=== PATIENT | male | born 1990 | race Caucasian/White ===

== ENCOUNTER 2021-10-06 01:42 | Emergency (ER) | payer MEDICAID, SELFPAY ==
--- NOTE | ~2021-10-06 | XR_ITS ---
EXAMINATION: XR chest 1V portable 10/06/2021 02:47 INDICATION: Overdose PROCEDURE: AP portable chest COMPARISON: No prior studies for comparison. FINDINGS: The lungs are clear. The cardiomediastinal silhouette is within normal limits. There are no pleural effusions. There is no pneumothorax suspected. IMPRESSION: 1: NO ACUTE CARDIOPULMONARY DISEASE. Reviewed, dictated and finalized at location A. CHOOL TEACHER'S ASSISTANT
[2021-10-06 01:43] VITALS: BP 144/61; PULSE 136; RESP 25; TEMP 36.4; O2SAT 99
[2021-10-06 01:49] VITALS: BP 144/61; PULSE 136; PULSE 140; RESP 20; O2SAT 100
--- NOTE | 2021-10-06 02:33 | ECG_ITS ---
Measurements Intervals [place] Rate: 126 P: 47 [place]: 162 QRS: 37 QRSD: 88 T: 6 QT: 285 QTc: 413 Interpretive Statements SINUS TACHYCARDIA MINIMAL Q WAVES- INFERIOR LEADS BASELINE ARTIFACT- II, III, AVF, V2-V6 ABNORMAL ECG Electronically Signed On 10-06-2021 6:14:17 BATTERY HAND by Uvaldo Jarrell D.O.
[2021-10-06 03:10] VITALS: BP 117/75; PULSE 132; RESP 26; O2SAT 100
[2021-10-06] MEDS: SODIUM CHLORIDE 0.9% IV 1,000 ML 999 ML IV CONT (03:12)
[2021-10-06 03:20] LABS: Basophils Percent Auto 0.2 % (0.2-1.2); Hemoglobin 15.4 g/dL (14.0-18.0); Immature Granulocyte Absolute 0.04 K/mm3 (0.00-0.031); Immature Granulocyte Percent A 0.4 % (0-0.5); Lymphocytes Absolute Auto 1.12 K/mm3 (0.9-3.2); Mean Corpuscular HGB Conc 32.1 g/dl (32-36); Mean Corpuscular Hemoglobin 26.6 pg (26-34); Mean Corpuscular Volume 82.8 fl (80-100); Mean Platelet Volume 10.5 fl (7.4-10.4); Monocytes Absolute Auto 0.8 K/mm3 (0.1-0.6); Monocytes Percent Auto 7.8 % (2.6-8.5); Neutrophils Absolute Auto 8.2 K/mm3 (1.3-6.7); Neutrophils Percent Auto 80.6 % (45.5-73.1); Platelet Count Result 158 k/mm3 (150-375); Red Cell Distribution Width 14.6 % (11.5-14.5); White Blood Count 10.2 K/mm3 (4.5-10.0)
[2021-10-06] MEDS: LORazepam INJ (*CRX) 2 MG/ML VIAL 1 MG IV PUSH (03:20)
--- NOTE | 2021-10-06 03:24 | ED.GENADULT ---
HPI - General Adult General Chief complaint: Unspecified Stated complaint: dispens. marijuana, hydrocodone, anxiety attacks Time Seen by Provider: 10/06/21 02:21 History of Present Illness HPI narrative: Patient is a 31-year-old gentleman who presents the emergency department with chief complaint of anxiety. The patient reports that he got some marijuana from the dispensary today took about six hits and then started feeling very anxious. Patient states that he noticed that also took some hydrocodone that was his mother's and felt as though he was having a panic attack. Patient felt very anxious patient denies suicidal or homicidal ideation. Related Data Allergies Allergy/AdvReac Type Severity Reaction Status Date / Time No Known Allergies Allergy Verified 10/06/21 03:11 Review of Systems Review of Systems: A 10 system review of systems was completed on the patient and is negative except for what is stated in the HPI. Nursing and ancillary documentation was reviewed. Exam Narrative: GENERAL: Well-appearing, well-nourished, and in no acute distress. HEAD: Normocephalic, atraumatic. EYES: PERRLA and EOMI. ENT: Nares clear, no rhinorrhea or epistaxis. Mucous membranes moist. NECK: Supple. CHEST: Clear to auscultation. No respiratory distress. HEART: Regular rate and rhythm. No murmur heard. Normal peripheral pulses. ABDOMEN: Soft, nontender, nondistended, normal active bowel sounds. EXTREMITIES: Normal range of motion. No edema. SKIN: Warm, dry, no rash. NEURO: No focal deficits. Alert and oriented x3. PSYCH: Normal mood and affect. Course Course Emergency Course: EKG is sinus tachycardia rate of [address] elevation or ST depression Chest x-ray shows no evidence of focal infiltrate Vital Signs Vital signs: Vital Signs Temperature 36.4 C 10/06/21 01:43 Pulse Rate 136 H 10/06/21 01:43 Respiratory Rate 25 H 10/06/21 01:43 Blood Pressure 144/61 H 10/06/21 01:43 Pulse Oximetry 99 10/06/21 01:43 Temperature 36.4 C 10/06/21 01:43 Pulse Rate 118 H 10/06/21 04:30 Respiratory Rate 27 H 10/06/21 04:30 Blood Pressure 133/80 10/06/21 04:30 Pulse Oximetry 99 10/06/21 04:30 Medical Decision Making Vital Signs Vital Signs: Vital Signs Temperature 36.4 C 10/06/21 01:43 Pulse Rate 136 H 10/06/21 01:43 Respiratory Rate 25 H 10/06/21 01:43 Blood Pressure 144/61 H 10/06/21 01:43 Pulse Oximetry 99 10/06/21 01:43 Temperature 36.4 C 10/06/21 01:43 Pulse Rate 118 H 10/06/21 04:30 Respiratory Rate 27 H 10/06/21 04:30 Blood Pressure 133/80 10/06/21 04:30 Pulse Oximetry 99 10/06/21 04:30 Lab Data Result diagrams: 10/06/21 03:13 10/06/21 03:13 Labs: Lab Results 10/06/21 10/06/21 10/06/21 Range/Units 03:13 03:13 03:13 WBC 10.2 H (4.5-10.0) K/mm3 RBC 5.80 (4.6-6.20) M/mm3 Hgb 15.4 (14.0-18.0) g/dL Hct 48.0 (42.0-52.0) % MCV 82.8 (80-100) fl MCH 26.6 (26-34) pg MCHC 32.1 (32-36) g/dl RDW 14.6 H (11.5-14.5) % Plt Count 158 (150-375) k/mm3 MPV 10.5 H (7.4-10.4) fl Immature Gran % (Auto) 0.4 (0-0.5) % Neut % (Auto) 80.6 H (45.5-73.1) % Lymph % (Auto) 11.0 L (18.3-44.2) % [place] % (Auto) 7.8 (2.6-8.5) % Eos % (Auto) 0.0 (0-4.4) % Baso % (Auto) 0.2 (0.2-1.2) % Lymph # (Auto) 1.12 (0.9-3.2) K/mm3 [place] # (Auto) 0.8 H (0.1-0.6) K/mm3 Eos # (Auto) 0.0 (0-0.3) K/mm3 Baso # (Auto) 0.0 (0.0-0.1) K/mm3 Abs Immat Gran (auto) 0.04 H (0.00-0.031) K/mm3 Absolute Neuts (auto) 8.2 H (1.3-6.7) K/mm3 Absolute Nucleated RBC 0.0 (0.0-0.012) K/mm3 Nucleated RBC % 0.0 (0.0-0.2) % Sodium 139 (137-145) mmol/L Potassium 3.9 (3.4-5.0) mmol/L Chloride 104 (98-107) mmol/L Carbon Dioxide 26 (22-30) mmol/L Anion Gap 9 (8-16) mmol/L BUN 11 (9-20) mg/dL Creatinine 1.00 (0.7-1.3) mg/dL Estim Creat Clear Shmuel
[2021-10-06 03:30] LABS: Acetaminophen < 10 ug/mL (10-30); Ethanol < 10 mg/dL (<10); Salicylate < 1.0 mg/dL (2-20)
[2021-10-06 03:31] LABS: Alanine Aminotransferase 40 U/L (4-50); Albumin Level 4.1 g/dL (3.5-5.1); Alkaline Phosphatase 64 U/L (38-126); Anion Gap 9 mmol/L (8-16); Aspartate Amino Transferase 27 U/L (17-59); Bilirubin,Total 0.6 mg/dL (0.2-1.3); Blood Urea Nitrogen 11 mg/dL (9-20); Calcium 8.6 mg/dL (8.4-10.2); Carbon Dioxide 26 mmol/L (22-30); Chloride 104 mmol/L (98-107); Creatine Kinase 55 U/L (55-170); Estimated CRCL calculation 133 ml/min; Estimated Glomerular Filt Rate > 60; Glucose 113 mg/dL (65-110); Potassium 3.9 mmol/L (3.4-5.0); Sodium 139 mmol/L (137-145)
[2021-10-06 03:32] LABS: Lactic Acid Reflex 1.6 mmol/L (0.7-2.1)
[2021-10-06 03:42] LABS: Add Urine Microscopic? NO; Appearance Urine Clear (Clear); Bilirubin Urine Negative (Negative); Blood Urine Negative (Negative); Color Urine Yellow (Yellow); Glucose Urine UA Negative (Negative); Ketones Urine Negative (Negative); Leukocyte Esterase Ur Negative LEU/UL (Negative); Nitrate Urine Negative (Negative); Protein Urine Negative (Negative); Specific Grav Ur 1.008 (1.001-1.035); Urobilinogen Urine Negative mg/dL (<2.0)
[2021-10-06 03:43] LABS: Troponin I 0.016 ng/mL (0.000-0.034)
[2021-10-06 04:30] VITALS: BP 133/80; PULSE 118; RESP 27; O2SAT 99
[2021-10-06 05:21] VITALS: BP 121/54; PULSE 130; RESP 26; O2SAT 98
[2021-10-06 05:30] LABS: Amphetamine Screen Urine Negative (Negative); Barbiturate Screen Urine Negative (Negative); Benzodiazepines Screen Urine Negative (Negative); Cannabinoid Screen Urine Positive (Negative); Cocaine Screen Urine Negative (Negative); Methadone Screen Urine Negative (Negative); Opiate Screen Urine Positive (Negative); Phencyclidine Screen Urine Negative (Negative)
== END 2021-10-06 05:22 | disposition home or self-care (01) ==
PROVIDERS: Emergency Provider Emergency Medicine
DX: T40.711A Poisoning by cannabis, accidental (unintentional), initial encounter (principal); T40.2X1A Poisoning by other opioids, accidental (unintentional), initial encounter; F41.9 Anxiety disorder, unspecified; R00.0 Tachycardia, unspecified; R94.31 Abnormal electrocardiogram [ECG] [EKG]
CPT/HCPCS: 36415; 71045; 80053; 80307; 81003; 82550; 83605; 83735; 84484; 85025; 93005; 96361; 96374; 99284; J2060; J7030

== ENCOUNTER 2021-10-26 23:00 | Emergency (ER) | payer MEDICAID, SELFPAY ==
--- NOTE | ~2021-10-26 | CT_ITS ---
EXAMINATION: CTA chest PE protocol DATE: 10/27/2021 05:48 INDICATION: Shortness of breath. Dysphagia. TECHNIQUE: Computed tomography angiography (CTA) of the chest was performed with 100 mL Omnipaque-350 intravenous contrast timed to evaluate the pulmonary arteries. Coronal maximum intensity projection 3D-reconstructions were created by the technologist. Automated exposure control and iterative reconst ruction technique were employed. The dose-length product was 1051.83 mGy-cm. COMPARISON: Chest 2 views 10/27/21 FINDINGS: There is no pneumonia or pleural effusion. The heart size is normal. No pericardial effusio n. There is diffuse hepatic steatosis. Mild splenomegaly is noted. There is no pulmonary embolus. The re is mild thoracic spondylosis. There is mild chronic height loss of multiple vertebral bodies. IMPRESSION: 1. No pulmonary embolus. 2. Diffuse hepatic steatosis. 3. Mild splenomegaly. Reviewed, dictated and finalized at location A. CAN FOOD COOK
--- NOTE | ~2021-10-26 | XR_ITS ---
EXAMINATION: XR chest 2V DATE: 10/27/2021 03:35 INDICATION: Left chest pain. Aspiration. TECHNIQUE: Frontal and lateral views of the chest were obtained. COMPARISON: Chest single view 10/06/2021, chest CT 10/27/2021 FINDINGS: The chest demonstrates clear lungs without pneumonia, pleural effusion, or pneumothorax. Th e heart size is normal. IMPRESSION: 1. No acute cardiopulmonary disease. Reviewed, dictated and finalized at location A. ING TECHNOLOGIST
[2021-10-26 23:04] VITALS: BP 150/108; PULSE 126; RESP 18; TEMP 36.7; O2SAT 98
[2021-10-27] VITALS (8 sets, daily range): BP systolic 133–162; BP diastolic 67–100; PULSE 100–147; RESP 18–24; TEMP 36.6; O2SAT 97–100
--- NOTE | 2021-10-27 04:06 | ED.GENADULT ---
HPI - General Adult General Chief complaint: Unspecified Stated complaint: food bolus Time Seen by Provider: 10/27/21 03:23 History of Present Illness HPI narrative: Patient 31-year-old gentleman who presents emergency department with chief complaint of feels as though something is stuck in his throat. The patient states he was eating a burger tonight coughed and feels as though there is irritation in his throat afterwards. The patient states he has no shortness of breath states that she is able to swallow liquids the patient reports that he figured he should come to the emergency department to be checked out. Patient denies hypoxia denies syncope. Patient denies vomiting Related Data Home Medications Medication Instructions Recorded Confirmed sulfasalazine 10/27/21 Allergies Allergy/AdvReac Type Severity Reaction Status Date / Time No Known Allergies Allergy Verified 10/06/21 03:11 Review of Systems Review of Systems: A 10 system review of systems was completed on the patient and is negative except for what is stated in the HPI. Nursing and ancillary documentation was reviewed. Exam Narrative: GENERAL: Well-appearing, well-nourished, and in no acute distress. HEAD: Normocephalic, atraumatic. EYES: PERRLA and EOMI. ENT: Nares clear, no rhinorrhea or epistaxis. Mucous membranes moist. NECK: Supple. CHEST: Clear to auscultation. No respiratory distress. HEART: Regular rate and rhythm. No murmur heard. Normal peripheral pulses. ABDOMEN: Soft, nontender, nondistended, normal active bowel sounds. EXTREMITIES: Normal range of motion. No edema. SKIN: Warm, dry, no rash. NEURO: No focal deficits. Alert and oriented x3. PSYCH: Normal mood and affect. Course Course Emergency Course: Chest x-ray shows no evidence of focal infiltrate. Vital Signs Vital signs: Vital Signs Temperature 36.7 C 10/26/21 23:04 Pulse Rate 126 H 10/26/21 23:04 Respiratory Rate 18 10/26/21 23:04 Blood Pressure 150/108 H 10/26/21 23:04 Pulse Oximetry 98 10/26/21 23:04 Temperature 36.6 C 10/27/21 02:35 Pulse Rate 125 H 10/27/21 04:17 Respiratory Rate 18 10/27/21 02:35 Blood Pressure 143/88 H 10/27/21 04:13 Pulse Oximetry 99 10/27/21 04:13 Medical Decision Making Vital Signs Vital Signs: Vital Signs Temperature 36.7 C 10/26/21 23:04 Pulse Rate 126 H 10/26/21 23:04 Respiratory Rate 18 10/26/21 23:04 Blood Pressure 150/108 H 10/26/21 23:04 Pulse Oximetry 98 10/26/21 23:04 Temperature 36.6 C 10/27/21 02:35 Pulse Rate 125 H 10/27/21 04:17 Respiratory Rate 18 10/27/21 02:35 Blood Pressure 143/88 H 10/27/21 04:13 Pulse Oximetry 99 10/27/21 04:13 Lab Data Result diagrams: 10/27/21 04:43 10/27/21 04:43 Labs: Lab Results 10/27/21 10/27/21 10/27/21 Range/Units 04:43 04:43 04:43 WBC 13.3 H (4.5-10.0) K/mm3 RBC 6.21 H (4.6-6.20) M/mm3 Hgb 16.7 (14.0-18.0) g/dL Hct 50.4 (42.0-52.0) % MCV 81.2 (80-100) fl MCH 26.9 (26-34) pg MCHC 33.1 (32-36) g/dl RDW 14.3 (11.5-14.5) % Plt Count 219 (150-375) k/mm3 MPV 10.5 H (7.4-10.4) fl Immature Gran % (Auto) 0.4 (0-0.5) % Neut % (Auto) 77.8 H (45.5-73.1) % Lymph % (Auto) 15.9 L (18.3-44.2) % [place] % (Auto) 5.7 (2.6-8.5) % Eos % (Auto) 0.0 (0-4.4) % Baso % (Auto) 0.2 (0.2-1.2) % Lymph # (Auto) 2.11 (0.9-3.2) K/mm3 [place] # (Auto) 0.8 H (0.1-0.6) K/mm3 Eos # (Auto) 0.0 (0-0.3) K/mm3 Baso # (Auto) 0.0 (0.0-0.1) K/mm3 Abs Immat Gran (auto) 0.05 H (0.00-0.031) K/mm3 Absolute Neuts (auto) 10.4 H (1.3-6.7) K/mm3 Absolute Nucleated RBC 0.0 (0.0-0.012) K/mm3 Nucleated RBC % 0.0 (0.0-0.2) % Sodium 138 (137-145) mmol/L Potassium 4.1 (3.4-5.0) mmol/L Chloride 106 (98-107) mmol/L Carbon Dioxide 25 (22-30) mmol/L Anion Gap 7 L (8-16) mmol/L BUN 9 (9-20) mg/
[2021-10-27] MEDS: SODIUM CHLORIDE 0.9% IV 1,000 ML 999 ML IV CONT (04:44)
[2021-10-27 04:50] LABS: Basophils Percent Auto 0.2 % (0.2-1.2); Hematocrit 50.4 % (42.0-52.0); Hemoglobin 16.7 g/dL (14.0-18.0); Immature Granulocyte Absolute 0.05 K/mm3 (0.00-0.031); Immature Granulocyte Percent A 0.4 % (0-0.5); Lymphocytes Absolute Auto 2.11 K/mm3 (0.9-3.2); Lymphocytes Percent Auto 15.9 % (18.3-44.2); Mean Corpuscular HGB Conc 33.1 g/dl (32-36); Mean Corpuscular Hemoglobin 26.9 pg (26-34); Mean Corpuscular Volume 81.2 fl (80-100); Mean Platelet Volume 10.5 fl (7.4-10.4); Monocytes Absolute Auto 0.8 K/mm3 (0.1-0.6); Monocytes Percent Auto 5.7 % (2.6-8.5); Neutrophils Absolute Auto 10.4 K/mm3 (1.3-6.7); Neutrophils Percent Auto 77.8 % (45.5-73.1); Platelet Count Result 219 k/mm3 (150-375); Red Blood Count 6.21 M/mm3 (4.6-6.20); Red Cell Distribution Width 14.3 % (11.5-14.5); White Blood Count 13.3 K/mm3 (4.5-10.0)
[2021-10-27 05:05] LABS: Lactic Acid Reflex 2.6 mmol/L (0.7-2.1)
[2021-10-27 05:14] LABS: Troponin I < 0.012 ng/mL (0.000-0.034)
[2021-10-27 05:15] LABS: Add Urine Microscopic? YES; Appearance Urine Clear (Clear); Bilirubin Urine Negative (Negative); Blood Urine Negative (Negative); Color Urine Yellow (Yellow); Glucose Urine UA Negative (Negative); Ketones Urine Negative (Negative); Leukocyte Esterase Ur Negative LEU/UL (Negative); Nitrate Urine Negative (Negative); Protein Urine Negative (Negative); RBC Urine 0-2 /hpf (0-2); Specific Grav Ur 1.017 (1.001-1.035); Urobilinogen Urine Negative mg/dL (<2.0); WBC Urine 0-3 /hpf
[2021-10-27 05:16] LABS: Alanine Aminotransferase 35 U/L (4-50); Albumin Level 4.9 g/dL (3.5-5.1); Alkaline Phosphatase 69 U/L (38-126); Anion Gap 7 mmol/L (8-16); Aspartate Amino Transferase 34 U/L (17-59); Blood Urea Nitrogen 9 mg/dL (9-20); Calcium 9.3 mg/dL (8.4-10.2); Carbon Dioxide 25 mmol/L (22-30); Chloride 106 mmol/L (98-107); Estimated CRCL calculation 163 ml/min; Estimated Glomerular Filt Rate > 60; Glucose 124 mg/dL (65-110); Magnesium 2.2 mg/dL (1.6-2.3); Potassium 4.1 mmol/L (3.4-5.0); Sodium 138 mmol/L (137-145)
[2021-10-27 07:46] LABS: Reflex Lactic Acid Yes or No Add Lactic
== END 2021-10-27 06:31 | disposition home or self-care (01) ==
PROVIDERS: Emergency Provider Emergency Medicine
DX: S27.818A Other injury of esophagus (thoracic part), initial encounter (principal); X58.XXXA Exposure to other specified factors, initial encounter
CPT/HCPCS: 36415; 71046; 71275; 80053; 81001; 83605; 83735; 84484; 85025; 96360; 99284; J7030; Q9967

== ENCOUNTER 2021-11-08 07:01 | Emergency (ER) | payer MEDICAID, SELFPAY ==
[2021-11-08] VITALS (12 sets, daily range): BP systolic 143–148; BP diastolic 99–110; PULSE 94–121; RESP 10–25; TEMP 36.4; O2SAT 93–100
--- NOTE | ~2021-11-08 | XR_ITS ---
EXAMINATION: XR chest 2V DATE: 11/08/2021 08:42 INDICATION: Racing heart TECHNIQUE: PA and lateral views of the chest were obtained. COMPARISON: Chest radiograph dated 10/27/2021 FINDINGS: The lungs remain clear with no focal airspace opacities, pulmonary edema, pleural effusion or pneumot horax. The cardiomediastinal silhouette is normal. Mild thoracic kyphosis with mild spondylosis. IMPRESSION: 1. No acute cardiopulmonary disease. Reviewed, dictated and finalized at location A. ORT MAINTENANCE LABORER
--- NOTE | 2021-11-08 08:32 | ECG_ITS ---
Measurements Intervals [place] Rate: 109 P: 35 [place]: 166 QRS: 29 QRSD: 87 T: 21 QT: 317 QTc: 429 Interpretive Statements SINUS TACHYCARDIA DELAYED PRECORDIAL R/S TRANSITION MINIMAL Q WAVES- INFERIOR LEADS BASELINE WANDER- V2 ABNORMAL ECG Electronically Signed On 11-08-2021 8:52:09 GLOBAL CHIEF EXPERIENCE OFFICER by Uvaldo Jarrell D.O.
[2021-11-08 09:04] LABS: Basophils Percent Auto 0.1 % (0.2-1.2); Hematocrit 46.9 % (42.0-52.0); Hemoglobin 15.1 g/dL (14.0-18.0); Immature Granulocyte Absolute 0.04 K/mm3 (0.00-0.031); Immature Granulocyte Percent A 0.4 % (0-0.5); Lymphocytes Absolute Auto 1.41 K/mm3 (0.9-3.2); Lymphocytes Percent Auto 14.9 % (18.3-44.2); Mean Corpuscular HGB Conc 32.2 g/dl (32-36); Mean Corpuscular Hemoglobin 26.5 pg (26-34); Mean Corpuscular Volume 82.4 fl (80-100); Mean Platelet Volume 10.5 fl (7.4-10.4); Monocytes Absolute Auto 0.6 K/mm3 (0.1-0.6); Monocytes Percent Auto 6.8 % (2.6-8.5); Neutrophils Absolute Auto 7.3 K/mm3 (1.3-6.7); Neutrophils Percent Auto 77.8 % (45.5-73.1); Platelet Count Result 176 k/mm3 (150-375); Red Blood Count 5.69 M/mm3 (4.6-6.20); Red Cell Distribution Width 14.1 % (11.5-14.5); White Blood Count 9.4 K/mm3 (4.5-10.0)
[2021-11-08 09:13] LABS: Prothrombin Time 13.2 Seconds (11.1-14.7)
[2021-11-08 09:14] LABS: Partial Thromboplastin Time 32.3 SECONDS (22.3-36.8)
[2021-11-08 09:16] LABS: Alanine Aminotransferase 26 U/L (4-50); Albumin Level 4.3 g/dL (3.5-5.1); Alkaline Phosphatase 76 U/L (38-126); Anion Gap 13 mmol/L (8-16); Aspartate Amino Transferase 23 U/L (17-59); Bilirubin,Total 0.7 mg/dL (0.2-1.3); Blood Urea Nitrogen 6 mg/dL (9-20); Calcium 8.7 mg/dL (8.4-10.2); Carbon Dioxide 23 mmol/L (22-30); Chloride 102 mmol/L (98-107); Estimated CRCL calculation 147 ml/min; Estimated Glomerular Filt Rate > 60; Glucose 117 mg/dL (65-110); Lipase 72 U/L (23-300); Potassium 3.5 mmol/L (3.4-5.0); Sodium 138 mmol/L (137-145)
[2021-11-08 09:27] LABS: Troponin I < 0.012 ng/mL (0.000-0.034)
--- NOTE | 2021-11-08 09:35 | ED.ARRPALP ---
HPI - Arrhythmia/Palpitations General Chief Complaint: Arrhythmia/Palpitations Stated Complaint: heart racing Time Seen by Provider: 11/08/21 09:04 Source: patient Mode of arrival: ambulatory Limitations: no limitations History of Present Illness HPI narrative: Patient 31 years old white male presented to the ED with palpitation. Patient lives with family, does not have a job, unable to sleep for weeks/months. Was up all night long, was trying to sleep, suddenly started feeling that his heart is beating up, lasted for about 10 minutes then currently feels close to normal. Patient denies any suicidal or homicidal ideation. Patient denies any chest pain or shortness of breath. Patient had similar symptoms in the past and was told this is secondary to panic attack. Patient is fully vaccinated for COVID-19. Denies any fever, chills, nausea, vomiting, headache, chest pain or shortness of breath Related Data Home Medications Medication Instructions Recorded Confirmed sulfasalazine 10/27/21 Allergies Allergy/AdvReac Type Severity Reaction Status Date / Time No Known Allergies Allergy Verified 11/08/21 08:32 Review of Systems Review of Systems: CONSTITUTIONAL: Denies fever, chills, or sweats. EYES: Denies visual changes, redness, or discharge. ENT: Denies rhinorrhea, congestion, sore throat, or otalgia. CARDIOVASCULAR: Denies chest pain, palpitations, or edema. RESPIRATORY: Denies cough or dyspnea. GASTROINTESTINAL: Denies abdominal pain, nausea, vomiting, or diarrhea. GENITOURINARY: Denies dysuria or hematuria. SKIN: Denies rash or itching. MUSCULOSKELETAL: Denies back pain, joint pain, or myalgia. NEUROLOGIC: Denies headache, numbness, or weakness. PSYCHIATRIC: Anxiety and depression Exam Narrative: General appearance: Well-developed, well-nourished, obese Skin: Normal color Head: Normocephalic, nontraumatic Eyes: Clear conjunctiva ENT: Oropharynx normal, ears normal, nose normal Neck: Supple, nontender Chest and respiratory: Airway patent, no respiratory distress, no accessory muscle use Heart: Tachycardia Abdomen: Soft, nontender, no organomegaly, quiet bowel sounds Vascular: Normal peripheral pulses, normal capillary refill. Musculoskeletal: Normal range of motion, nontender back Neurologic: Alert and oriented ?3, GRID OPERATOR is normal as tested, no gross motor deficit Course Course Emergency Course: Stable Vital Signs Vital signs: Vital Signs Temperature 36.4 C 11/08/21 07:04 Pulse Rate 121 H 11/08/21 07:04 Respiratory Rate 20 11/08/21 07:04 Blood Pressure 148/110 H 11/08/21 07:04 Pulse Oximetry 99 11/08/21 07:04 Temperature 36.4 C 11/08/21 07:04 Pulse Rate 108 H 11/08/21 08:35 Respiratory Rate 18 11/08/21 08:35 Blood Pressure 143/99 H 11/08/21 08:35 Pulse Oximetry 98 11/08/21 08:35 MDM - Arrhythmia/Palpitations MDM Narrative Medical decision making narrative: Palpitation Patient arrived to the ED with sinus tachycardia resolved after Ativan IV. Work-up did not show any specific or significant findings to explain patient condition. Anxiety, insomnia, pression, unemployed are the underlying cause of patient presentation. Patient feeling much better and ready to go home. Differential Diagnosis Differential diagnosis: Likely palpitations, anxiety and other (Hyperthyroidism, drug induced tachycardia) Lab Data Result diagrams: 11/08/21 08:50 11/08/21 08:50 Labs: Lab Results 11/08/21 11/08/21 11/08/21 Range/Units 08:50 08:50 08:50 WBC 9.4 (4.5-10.0) K/mm3 RBC 5.69 (4.6-6.20) M/mm3 Hgb 15.1 (14.0-18.0) g/dL Hct 46.9 (42.0-52.0) % MCV 82.4
[2021-11-08 10:05] LABS: Amphetamine Screen Urine Negative (Negative); Barbiturate Screen Urine Negative (Negative); Benzodiazepines Screen Urine Negative (Negative); Cannabinoid Screen Urine Negative (Negative); Cocaine Screen Urine Negative (Negative); Methadone Screen Urine Negative (Negative); Opiate Screen Urine Positive (Negative); Phencyclidine Screen Urine Negative (Negative)
[2021-11-08] MEDS: LORazepam INJ (*CRX) 2 MG/ML VIAL 1 MG IV PUSH (10:21)
== END 2021-11-08 11:04 | disposition home or self-care (01) ==
PROVIDERS: Emergency Provider Emergency Medicine
DX: R00.2 Palpitations (principal); F41.9 Anxiety disorder, unspecified; R00.0 Tachycardia, unspecified; R94.31 Abnormal electrocardiogram [ECG] [EKG]
CPT/HCPCS: 36415; 71046; 80053; 80307; 83690; 84443; 84484; 85025; 85610; 85730; 93005; 96374; 99284; J2060

== ENCOUNTER 2023-03-11 16:43 | Outpatient (CLI) | payer OTHER, SELFPAY ==
--- NOTE | ~2023-03-11 | MR_ITS ---
EXAMINATION: MR lumbar spine wo con DATE: 03/12/2023 08:56 INDICATION: Low back pain. TECHNIQUE: Magnetic resonance imaging (MRI) of the lumbar spine was performed without intravenous con trast. Sequences included sagittal T2-weighted FSE, sagittal T2-weighted FS FSE, sagittal T1-weighted FSE, and axial T2-weighted FSE. COMPARISON: None FINDINGS: Bone alignment is normal. There is mild chronic anterior wedging of T12 vertebral body. Int ervertebral disc heights are normal. There is developmental osseous central canal stenosis in lumbar spine. The distal spinal cord signal intensity is normal. The conus medullaris is at L1. The followin g disc levels are specifically discussed: L1-L2: The disc does not extend beyond the endplate margin. There is moderate bilateral facet joint o steoarthritis. There is no neural foraminal stenosis. There is mild central canal stenosis. L2-L3: The disc does not extend beyond the endplate margin. There is moderate bilateral facet joint o steoarthritis. There is no neural foraminal stenosis. There is mild central canal stenosis. L3-L4: The disc does not extend beyond the endplate margin. There is moderate bilateral facet joint o steoarthritis. There is no neural foraminal stenosis. There is mild central canal stenosis. L4-L5: The disc is bulging. There is moderate bilateral facet joint osteoarthritis. There is mild dana ateral neural foraminal stenosis. There is mild central canal stenosis. L5-S1: The disc does not extend beyond the endplate margin. There is moderate bilateral facet joint o steoarthritis. There is mild right neural foraminal stenosis. There is no central canal stenosis. IMPRESSION: 1. Mild lumbar spondylosis. Reviewed, dictated and finalized at location A. IMPRESSION: 1. Mild lumbar spondylosis.
== END 2023-03-11 16:44 | disposition home or self-care (01) ==
LOC: ANHIMG 18:21
PROVIDERS: Visit Provider Nurse Practitioner Family
DX: M47.896 Other spondylosis, lumbar region (principal)
CPT/HCPCS: 72148